=== PATIENT | male | born 1965 | race Caucasian/White ===

== ENCOUNTER 2020-03-18 12:32 | Emergency (ER) | payer OTHER, SELFPAY ==
[2020-03-18 12:34] VITALS: BP 127/92; PULSE 91; RESP 16; TEMP 36.4; O2SAT 100; BMI 23.0
--- NOTE | 2020-03-18 13:10 | RAD_ITS ---
INDICATION: fell, pain EXAMINATION/TECHNIQUE: X-RAY - RIGHT XR Hip Unilateral with Pelvis when performed; 2-3 Views 3 VIEWS COMPARISON: None. FINDINGS: SOFT TISSUES: No soft tissue swelling or gas. No radiopaque foreign body. BONES/JOINTS: No acute fracture or subluxation.. Normal alignment. There is significant degenerative arthritis involving the right hip. RAD/HIP, UNI W/ Pelvis 2-3 Views IMPRESSION: Significant degenerative arthritis of the right hip. Electronically Signed: Johny Mc, at 14:34 EST Tel , Service support ,
--- NOTE | 2020-03-18 13:10 | RAD_ITS ---
INDICATION: fell, pain EXAMINATION/TECHNIQUE: X-RAY - XR Spine Lumbar 2 or 3 Views COMPARISON: None. FINDINGS: VERTEBRAE: Preserved vertebral body height. No fracture. No spondylolisthesis. Preservation of the normal lumbar lordosis. No significant facet arthropathy. DISCS: Disc spaces are maintained. INCLUDED ABDOMEN: Included bowel gas pattern is non-obstructive. RAD/Lumbar Spine 2 or 3 Views IMPRESSION: No evidence of lumbar spinal fracture or spondylolisthesis. Electronically Signed: Johny Mc, at 13:56 EST Tel , Service support ,
[2020-03-18 14:05] VITALS: O2SAT 97
[2020-03-18] MEDS: Ibuprofen 600 MG Tablet PO (14:08)
--- NOTE | 2020-03-18 14:53 | ED.VISSUMM ---
- ER Visit Summary Date of Service: 03/18/20 Chief Complaint: Fall History of Present Illness: The patient is a 55 M with no primary care physician. He reports he was walking into work today his shoes were wet he slipped and fell. He reports he has low back pain is 5-10 severity and right hip pain is 10 of 10 in severity. No blow to the head or loss of consciousness. No neck pain. No shoulder, wrist, or left hip pain. He is not on anticoagulants. He denies loss of consciousness. Physical Examination: Vitals: Stable. Afebrile. Neck: No vertebral tenderness. Full ROM without difficulty. Cleared by NEXUS criteria. Back: Mild diffuse vertebral tenderness palpation over the lumbar spine and paraspinous posterior lumbar region bilaterally. There is no point tenderness. General: A&O x 3. NAD. Cardiovascular exam: Regular rate and rhythm, no murmur, rub or gallop. Respiratory exam: Chest nontender. No crepitus. Clear to auscultation bilaterally. No wheezes or stridor. Abdominal exam: Soft, nontender, nondistended, normal bowel sounds. No pain in RUQ or LUQ specifically. No peritoneal signs. Extremity: Mild tenderness palpation over the right greater trochanter. He has no pain with internal or external rotation of his hip. He is neuro vas intact distal to this.. Test Results: Clinical Impression(s) from Imaging Studies Hip/Pelvis X-Ray 03/18/20 13:10 IMPRESSION: Significant degenerative arthritis of the right hip. Electronically Signed: Johny Mc, at 14:34 EST Tel , Service support , Lumbar Spine X-Ray 03/18/20 13:10 IMPRESSION: No evidence of lumbar spinal fracture or spondylolisthesis. Electronically Signed: Johny cM at 13:56 EST Tel , Service support , Emergency Department Course and Treatment: Patient was treated with ibuprofen. He is resting comfortably. Treatment Plan: Patient will be discharged with [facility]. Instructed to follow-up with Dr. Farah in 1 week if not improving. Initially he did not want to do this is [employer]. However, when he changed his mind he was instructed to fill out a first report of injury and is instructed to follow-up with corporate care. Return to the emergency department for any worsening symptoms. Disposition: To home in improved and stable condition. Impression: 1. Fall. 2. Low back pain. 3. Right hip pain, acute. This note was generated with [employer] dictation software. It may contain incorrect words, spelling, and punctuation that were not noted in review of the chart prior to signing ED Disposition - Plan for ED Patient: Disposition: Home or Assisted Living Instructions: ED LUMBAR SPRAIN/STRAIN, ED CONTUSION Hip Prescriptions: cycloBENZAPRine HCl [Flexeril] 10 mg PO TID PRN #20 tab PRN Reason: Muscle Spasm Prescription Printed Hydrocodone Bitart/Apap 5-325 [[place] 5MG-325MG] 1 tab PO Q4H PRN PRN 2 Days #10 tab PRN Reason: Pain Prescription Printed Referrals: José Ortiz DO [STAFF PHYSICIAN] - 1 Week if not improving
[2020-03-18 15:25] VITALS: BP 131/85; PULSE 74; RESP 15; O2SAT 100
== END 2020-03-18 15:26 | disposition home or self-care (01) ==
LOC: ED 14:09
PROVIDERS: Emergency Provider Emergency Medicine
DX: M25.551 Pain in right hip (principal); M54.2 Cervicalgia
CPT/HCPCS: 72100; 73502; 99282